=== PATIENT | male | born 1970 | race Caucasian/White ===

== ENCOUNTER 2018-03-26 19:16 | Outpatient (REF) | payer OTHER, SELFPAY ==
[2018-03-26 19:56] LABS: TSH 1.66 uIU/mL (0.358-3.74)
== END 2018-03-26 19:36 ==
LOC: NCHCN 19:16
PROVIDERS: PCP Internal Medicine; Visit Provider Physician Assistant Medical
DX: R20.2 Paresthesia of skin (principal)
CPT/HCPCS: 84443

== ENCOUNTER 2019-02-27 13:36 | Outpatient (CLI) | payer OTHER, SELFPAY ==
--- NOTE | 2019-02-27 13:35 | DI.RAD_ITS ---
SYMPTOMS/DIAGNOSIS: CHRONIC LUMBOSACRAL BACK PAIN, M54.5 SACRUM AND COCCYX: There is no evidence of fracture. No lytic or blastic lesions are identified. There are mild degenerative changes of the SI joints. There are advanced degenerative changes of the L5-S1 disc. IMPRESSION: Unremarkable sacrum and coccyx. LUMBAR SPINE: The vertebral bodies are well maintained in height. Small to moderate endplate osteophytes are seen at all levels. There is mild narrowing of the L4-5 disc space. There is severe narrowing of the L5-S1 disc space with moderate osteophyte formation. There are facet degenerative changes at L4-5 and L5-S1. No spondylolysis, spondylolisthesis or scoliosis is seen. IMPRESSION: Degenerative disc changes and facet degenerative changes, greatest at L5-S1.
== END 2019-02-27 13:56 ==
PROVIDERS: PCP Internal Medicine; Visit Provider Nurse Practitioner Family
DX: M54.5 Low back pain (principal); M53.3 Sacrococcygeal disorders, not elsewhere classified; M51.37 Other intervertebral disc degeneration, lumbosacral region; M47.817 Spondylosis without myelopathy or radiculopathy, lumbosacral region
CPT/HCPCS: 72110; 72220

== ENCOUNTER 2019-03-04 12:16 | Outpatient (CLI) | payer OTHER, SELFPAY ==
--- NOTE | 2019-03-04 10:21 | DI.RAD_ITS ---
SYMPTOM/DIAGNOSIS: ABD DISCOMFORT R10.9 ABDOMEN: 03/04/19 The bowel gas pattern is normal. The abdominal fat planes are well defined and appear intact. There is no evidence of organomegaly or an intra-abdominal mass. No evidence of abnormal intra-abdominal calcification is seen. CONCLUSION: Normal abdomen.
== END 2019-03-04 12:36 ==
PROVIDERS: PCP Internal Medicine; Visit Provider Nurse Practitioner Family
DX: R10.9 Unspecified abdominal pain (principal)
CPT/HCPCS: 74018

== ENCOUNTER 2019-03-26 15:48 | Outpatient (CLI) | payer OTHER, SELFPAY ==
[2019-03-28 09:06] LABS: PSA, Screening 0.5 ng/ml (0-3.5)
== END 2019-03-26 16:08 ==
PROVIDERS: PCP Internal Medicine; Visit Provider Internal Medicine
DX: Z12.5 Encounter for screening for malignant neoplasm of prostate (principal); R10.9 Unspecified abdominal pain
CPT/HCPCS: 36415; 84153

== ENCOUNTER 2019-05-09 00:36 | Outpatient (CLI) | payer OTHER, SELFPAY ==
--- NOTE | 2019-05-09 11:30 | ETT_ITS ---
APPROVED REPORT Exam: Exercise Treadmill Patient Location: Out-Patient Room/Bed: Stress Nurse: Veronica Figueroa RN BMI: 30.71 Baseline Rhythm: NSR Indications: Chest Pain/pressure, Dyspnea, SOB, Dizzy, Diaphoretic Medical History Medical History: GERD, Hyperlipidemia, Anxiety Cardiac Medications: Aspirin, Metoprolol succinate/ Toprol XL Allergies: No known drug allergies Cardiac Risk Factors: Hyperlipidemia, FHX of CAD Pretest Chest Pain Characteristics: Non-exertional Chest pain/pressure Exercise History: Physically active Lung Sounds: Clear to auscultation Heart Sounds: Regular Stress Test Details Test: Exercise stress testing was performed using a Dave protocol. Rest Stress HR Resting HR: 74 bpm Max Heart Rate (APMHR): 169 bpm Resting HR Supine: 74 bpm Target HR (85% APMHR): 143 bpm Resting HR Standin bpm Max HR Achieved: 169 bpm % of APMHR: 100 Recovery HR: 95 bpm HR response to stress: Normal HR response to stress BP Resting BP: 140/90 mmHg Resting BP Supine: 140/90 mmHg Resting BP Standin/88 mmHg Max BP: 198/74 mmHg Recovery BP: 156/72 mmHg BP response to stress: Normal blood pressure response to stress. ECG Resting ECG: Sinus Rhythm Stress ECG: Sinus Tachycardia ST Change: Normal Arrhythmia: None Recovery ECG: Sinus Rhythm Recovery Arrhythmia: None Clinical Time of Stop for Dave: 12:38 Reason for Termination: Target HR Achieved, Fatigue Stress Symptoms: Leg Fatigue Exercise duration: 12 min38 sec Highest Stage Achieved: Stage 4: 4.2 mph at 16% grade. Exercise capacity: 13.92 METs Functional Capacity: Above average capacity Stress ECG Conclusion 1. The patient exercised for 12 minutes and 38 seconds (14 METS) 2. The study was stopped due to leg fatigue 3. There is no EKG abnormality suggestive of inducible ischemia. 4. The Garibay Score (12) estimates an annual cardiovascular mortality of 0% and a five year survival of 96%. Using the Garibay Score there is a low probability of any angiographic coronary disease. Protocol Used: Dave Protocol Stress Test Summary STAGE Time (mins) Speed (mph) Grade (%) HR BP SYMPTOMS METS Supine 74 140/90 Standing 76 140/88 99% 1 3 1.7 10 101 164/90 98% 4.6 2 6 2.5 12 115 166/92 98% 7 3 9 3.4 14 132 170/92 10.2 4 12 4.2 16 156 186/94 98% 12.9 5 15 5.0 18 17.2 1 min recovery 161 198/74 99% 3 min recovery 104 198/74 6 min recovery 95 156/72
== END 2019-05-09 00:56 ==
PROVIDERS: PCP Internal Medicine; Visit Provider Internal Medicine
DX: R07.89 Other chest pain (principal); R06.09 Other forms of dyspnea; R06.02 Shortness of breath; E78.5 Hyperlipidemia, unspecified; Z82.49 Family history of ischemic heart disease and other diseases of the circulatory system
CPT/HCPCS: 93017

== ENCOUNTER 2019-05-16 06:20 | Day surgery (SDC) | payer OTHER, SELFPAY ==
--- NOTE | 2019-05-15 18:38 | W.PM.HP.N ---
Date of service: 05/16/19 Time of Service: 07:30 Assessment and Plan Assessment and plan (1) GERD (gastroesophageal reflux disease): Status: Chronic Assessment and plan: Informed consent is obtained for the procedural (explained in simple layman's terms that the pt and/or family could understand) explaining risks vs benefits and alternatives to the procedure and consequences if we do not do the procedure and need/rational for the procedure. Risks include but are not limited to: bleeding, infection, perforation of esophagus, stomach, colon, small intestines, bronchus or trachea, or PTX. This would necessitate emergency surgery to repair the damage w/ possible ostomy; and other associated complications w/ the required surgery. Also complications of anesthesia including aspiration, MO/CVA/. (2) Rectal pain: Status: Acute History of Present Illness Consults Consult date: 05/16/19 Narrative: From H & P on 03/08 :y/o male with history of GERD presents with complaints of coccyx/rectal pain since December 2018. His discomfort is pressure, numbing in nature and is most prominent with sitting and less so with standing and walking. Previously he also had associated glute pain with sitting in December that was achey in nature. He denies any trauma or injury to the area. He reports his bowel habits have changed in that they are softer than normal. While having BMs it feels like something is impeding my bowel movements. Also of note he describes that intermittently after meals his abdomen becomes uncomfortable with left sided cramping that he believes is related to his digestive track. This is mostly commonly noted after eating sauces, such as tomato or pesto sauce. He denies symptoms of heart burn, bloating or flatus. He denies a family history of colon cancer. Denies bloody or black tarry stools. He denies constitutional symptoms. Denies use of marijuana or any other recreational or illegal drugs. He denies chest pain, palpitations, dyspnea or dyspnea with exertion. He denies prior history or family history of adverse reactions or complications with anesthesia. Rectal exam was unremarkable. No mass, fissure or hemorrhoids was appreciated on exam. Sensation in tact with good sphincter tone. He appeared very uncomfortable during digital rectal exam, however this discomfort was different from what he has been experiencing. Unable to recreate his discomfort with palpation of his glutes, spinous process or coccyx. Discussed the nextbest way to evaluate the area would be to proceed with a Colonoscopy to r/o a large polyp or mass. This will be his first Colonoscopy. No family history of Colon Cancer. Spoke with patient on the phone, he has been having sternal/epigastric discomfort over the past few weeks, which is associated with light headedness. He was seen in the ER in [place] at which time the r/o cardiac cause. Today 05/09/19 he had a cardiac stress test which was unremarkable. He reports having [place] E[place] 8[place]10 [place] of [place] and he does not recall his results. His PCP mentioned concern for Jennings's esophagus and he would like to proceed with an EGD for further evaluation of his symptoms. He denies symptoms of reflux, tasting acid or dry cough. He reports he has been under significant stress in his home and work life and feels this may also be contributing to his symptoms. -Discussed Upper endoscopy procedure and the need to be NPO after midnight the night prior. Discussed possible complications of the procedure to include bleeding, pain, perforation, missed small lesion/polyp/ulcers, sore throat, aspiration and adverse reaction to the medications or sedation. Questions were answered to patients satisfaction. No guarantees were implied or given. Also of note he reports his rectal pain has subsided since being treated with a round of Cipro and Flagly in [place] for a virus. He is due for screening Colonoscopy, so we will proceed with having this done. Stress ECG Conclusion 1. The patient exercised for 12 minutes and 38 seconds (14 METS) 2. The study was stopped due to leg fatigue 3. There is no EKG abnormality suggestive of inducible ischemia. 4. The Garibay Score (12) estimates an annual cardiovascular mortality of 0% and a five year survival of 96%. Using the Garibay Score there is a low probability of any angiographic coronary disease. 05/07 pt seen adn examined. ALl the pain that the pt has been having is gone. pt was recently at a [facility] of [place] [place] scan: diverticular dx and enteritis. now having chest pains/epigastric pain. Started taking otc opemprazole prn . Is now on 40mg daily and is better- but not completely. coffee- none no soda no nsaid's/asa non smoker etoh- weekends no blood in stool or black stools. no vomiting. no pain or diff swallowing. he is eating. + wt loss- but he is trying. [facility] Surgical History History of esophagogastroduodenoscopy (EGD) (Chronic) Family History Mother Polymyalgia rheumatica Heart disease Father Essential hypertension Heart disease Neoplasm Social History Smoking/Tobacco Use Status: Never Alcohol Intake: current Alcohol Intake frequency: a few times a month Alcohol type: beer and wine Substance use type: does not use Do you feel safe at home: Yes Do you feel safe in your relationship?: Yes Meds Home Medications and Allergies Home Medications Medication Instructions Recorded Confirmed Type omeprazole 40 mg PO DAILY tab-cap 12/21/16 05/16/19 History bisacodyl 5 mg tablet,delayed 5 mg PO ONCE #4 tab 03/08/19 05/16/19 Rx release polyethylene glycol 3350 17 238 g PO ONCE #238 gm 03/08/19 05/16/19 Rx gram/dose oral powder Allergies Allergy/AdvReac Type Severity Reaction Status Date / Time No Known Allergies Allergy Unverified 05/16/19 06:43 Exam Const General: cooperative, healthy appearing, comfortable, no acute distress, well developed and well groomed Nutritional Appearance: average body habitus and well nourished Orientation: alert, awake and oriented x3 HENMT Head: normal to inspection, normocephalic and atraumatic Ears: hearing grossly normal bilaterally and external ears normal General nose exam: external nose normal Face and sinus: normal facial exam and sinuses nontender Mouth: oral mucosae normal, lip normal, tongue normal and moist mucous membranes Teeth and gingiva: dentition normal Eyes General: appearance normal, both eyes and all related structures Conjunctivae: conjunctivae normal Sclera: sclerae normal Pupils: PERRL Neck Neck: normal visual inspection and full ROM Chest Chest: normal inspection of the chest Resp Effort & Inspection: normal respiratory effort, able to speak in complete sentences, no cough, no nasal flaring, not tachypneic and no use of accessory muscles Auscultation: clear to auscultation bilaterally, no rales, no rhonchi and no wheezes Cardio Jugular venous pressure: no JVD Rate: regular rate Rhythm: regular rhythm GI Inspection: normal to inspection, no edema and non-distended Palpation: soft, no masses, nontender and No ascites Auscultation: normal bowel sounds Other: chronic achy burning pain in epigastric region the pain that he was having in rectum is resolved at this time. Skin General skin exam: no rashes or lesions noted Trauma: no lacerations or abrasions Neuro General: alert, oriented x3, oriented, gait normal, moves all extremities, no focal motor deficits and CN's II-XI intact bilaterally Cognition: normal cognition Speech: speech normal Gait: normal gait Motor: muscle tone normal throughout Extrem General: normal to inspection, full ROM and no clubbing, cyanosis or edema Psych Appearance: grossly normal and well kempt Mental Status: mental status grossly normal Speech and Movement: speech and movement normal Affect: normal affect
--- NOTE | 2019-05-15 18:59 | W.COLOREPORT ---
Date of service: 05/16/19 Colonoscopy Report Date of procedure: 05/16/19 Pre-op diagnosis general: GERD & rectal pain. Post-op diagnosis procedure note: other (gastritis/diverticular dx ) Procedure: CE w/ bx Surgeon: Reny Fabian Anesthesia proc note operative: GETA Estimated blood loss (mL): 1 Pathology: other Complications: None Disposition: same day Prep: Miralax/Dulcolax Retraction Time: 10 mins Procedure Description: INDICATIONS: The patient is here today at the request of their PCP and is here today for a colonoscopy for rectal pain. Informed consent was obtained, explaining the risks and benefits of the procedure, including but not limited to bleeding, infection, perforation, aspiration, complications from the anesthesia. DESCRIPTION OF PROCEDURE: The patient was brought to the endoscopy suite and placed in left lateral decubitus position. Anesthesia was administered per the Department of Anesthesia, with constant monitoring of all vital signs. Digital rectal exam was performed prior to beginning the procedure and revealed no anal or rectal pathology. There was good sphincter tone. No internal or external hemorrhoids are noted. no fissures or masses. The previously lubricated Olympus was inserted in the rectum and insufflation was begun. The scope was passed up through the recto-sigmoid valves, through the sigmoid and transverse, down the ascending and the cecum was achieved at 90 cm. Good prep was good. The scope was then withdrawn. There were no AVM,s , or polyps noted. He does have many lg mouthed diverticula confined to the sigmoid colon. There is no signs of active bleeding or infection. The mucosa is otherwise pink and healthy. vasculature appears grossly normal. The rectum appears grossly no. Bx is taken of rectum. The patient tolerated the procedure without complicated and transferred to the recovery room in stable condition. Colonoscopy should be repeated in 10 years? time. Reny Fabian, DO
--- NOTE | 2019-05-15 19:00 | W.PM.ENDDOP ---
Date of service: 05/16/19 Time of Service: 09:06 Endoscopy Report DATE OF PROCEDURE: 05/16/19 PRE-OP DIAGNOSIS: GERD/rectal pain POST-OP DIAGNOSIS: same PROCEDURE: egd w/ Bx SURGEON: Reny Murcia ANESTHESIA: GETA ESTIMATED BLOOD LOSS: 1 PATHOLOGY: other DISPOSITION: same day PREP: Miralax/Dulcolax PROCEDURE DESCRIPTION: DESCRIPTION OF PROCEDURE: The patient was brought to the endoscopy suite and placed in left lateral decubitus position. IV and topical anesthesia was administered per the Department of Anesthesia, with constant monitoring of all vital signs. The previously lubricated Olympus scope was inserted into the oropharynx and passed down into the esophagus. There are no esophageal erosions,varix,diverticuli or strictures apparent. The scope is passed into the stomach and through the pylorus- which is freely patent. The Z line is at 38cm and appears nl. No hiatal hernia. The duodenum is normal. The scope is passed into the second portion of the duodenum. Bile is visualized and appears grossly normal. Bx is taken of the duodenal bulb. The stomach is grossly normal no polyps/masses. THere are one or two small polups- from being in on chronic PPI therapy. There is some mild redness in a striped pattern around the antrum. Bx is taken. There is no bile reflux into the stomach. Bx are taken of the, antrum, and greater curvature. Bx are taken of the G-E junction and of the distal esophagus. All the specimens were retrieved, and there was no bleeding noted. The cords appeared normal. The patient tolerated the procedure well and transferred to the recovery room in stable condition. RENY MURCIA D.O.
[2019-05-16 06:30] VITALS: BP 144/95; PULSE 86; RESP 18; TEMP 36.4; O2SAT 99
[2019-05-16] MEDS: Lactated Ringers 1,000 ML 80 ML IV (06:57)
--- NOTE | 2019-05-16 08:19 | STOM_PTH ---
PATIENT: Lawrence Walker LOC: [facility] U#:[id number] AGE/SX: 49/M ROOM: RE05/16/[address]: Reny Fabian : 1970 BED: DIS: 05/16/2019 SPEC #: [id number] RECD: 05/16/19 12:56 STATUS: SANDRA RE #: [id number] JODIE: 05/16/19 08:[address]: Reny Fabian DEPT: Surgical Specimen RECD BY: Hannah Saleem ENTERED: 05/16/19 12:59 SP TYPE: STOMACH OTHR DR: Larry Chino Tissues: 1 - BIOPSY BOWEL 2 - STOMACH BIOPSY 3 - STOMACH BIOPSY 4 - ESOPHAGUS BIOPSY 5 - ESOPHAGUS BIOPSY 6 - BIOPSY BOWEL Procedures: GROSS AND MICRO LEVEL 4 Comments: [id number]
--- NOTE | 2019-05-16 08:55 | W.PM.DSUDISC ---
Discharge Plan Disposition Patient Disposition: HOME Condition: Good Discharge Details Reason For Visit: RECTAL PAIN / GERD Attending Provider: Reny Fabian Primary Care Provider: Larry Chino Home Meds and New Rx's Prescriptions: New pantoprazole 40 mg tablet,delayed release (DR/EC) 40 mg PO DAILY Qty: 30 RF: 12 sucralfate 1 gram tablet 1 gm PO QACHS PRN (Reason: heartburn) Qty: 90 RF: 12 Discontinued polyethylene glycol 3350 17 gram/dose powder 238 g PO ONCE Qty: 238 RF: 0 bisacodyl [Dulcolax (bisacodyl)] 5 mg tablet,delayed release (DR/EC) 5 mg PO ONCE Qty: 4 RF: 0 omeprazole 20 MG capsule,delayed release(DR/EC) 40 mg PO DAILY RF: 0 Discharge Instructions Instructions: Diverticulitis Diet (GEN) Additional Instructions: Findings: mild gastritis. diverticular Dx- no infection Continue with lifestyle modifications: no alcohol, tobacco products, Aspirin or NSAID's (ibuprofen, Motrin, Naprosyn, aleve, etc). try to limit: soda pop/any carbonated beverages, caffeine (including tea & chocolate), and acidic foods, (tomatoes, citrus, onions, peppermints) spicy or fried/fatty foods. Do not lie down for 30 minutes after eating, and do not eat 2 hours prior to bedtime. Avoid wearing tight fitting clothing/ belts no nsaid's x 24 hrs Follow up:repeat colonscopy in ten yrs Please call if you develop: fevers >101.5 Nausea or Vomiting Abdominal pain that is not transient DAY SURGERY UNIT POST COLONOSCOPY INSTRUCTIONS 1. Because there will be medication in your system for the next 24 hours, you may feel a little sleepy. Your coordination will be affected. Therefore: a. Do not drive or operate dangerous equipment for 24 hours. b. Do not drink alcohol beverages for 24 hours (not even beer). c. Plan to go home and rest for the day. 2. Generally there are no restrictions on your activity after a day or so has gone by, but you may feel a bit fatigued for a few days. 3 After you arrive home you may have a light meal and return to a normal diet as you can tolerate it without feeling sick to your stomach. 4. After surgery, you may feel pain or discomfort. This should be only transient, but if it persists please contact your doctor. 5. If there are any questions regarding the findings of your procedure, please feel free to contact your doctor. 6. If you are unable to contact your doctor with a problem, contact the hospital at [phone]. 7. Continue all your regular medications unless directed otherwise. I understand the above instructions and have no questions. Signature of Patient or Responsible Adult Escort Date/Time Name of Responsible Adult Escort Signature of Nurse Date/Time Activity:: no heavy lifting or strenuous activty x 24 hrs Diet:: small light meals today Discharge Orders Discharge Orders: Discharge Order (Routine); Ordered 05/15/19 Ordered By: Reny Fabian DS: Diagnosis Discharge Diagnosis (1) GERD (gastroesophageal reflux disease): Status: Chronic (2) Rectal pain: Status: Acute
[2019-05-16 09:24] VITALS: BP 126/81; PULSE 62; RESP 16; TEMP 36.4; O2SAT 96
== END 2019-05-16 09:58 | disposition home or self-care (01) ==
PROVIDERS: PCP Internal Medicine; Visit Provider Surgery
PROC: (CPT 45380; principal; 2019-05-16 07:30)
DX: K21.0 Gastro-esophageal reflux disease with esophagitis (principal); K62.89 Other specified diseases of anus and rectum; K29.80 Duodenitis without bleeding; K31.89 Other diseases of stomach and duodenum; K57.30 Diverticulosis of large intestine without perforation or abscess without bleeding; D13.1 Benign neoplasm of stomach
CPT/HCPCS: 45380; 43239; 88305; NC

== ENCOUNTER 2019-06-12 12:44 | Outpatient (CLI) | payer OTHER, SELFPAY ==
[2019-06-14 12:01] LABS: IgA 373 mg/dL (85-499)
[2019-06-14 16:44] LABS: Tissue Transglutaminase IgA 1.2 U/mL (<4.0)
== END 2019-06-12 13:04 ==
PROVIDERS: PCP Internal Medicine; Visit Provider Surgery
DX: R10.9 Unspecified abdominal pain (principal); R14.0 Abdominal distension (gaseous); R89.7 Abnormal histological findings in specimens from other organs, systems and tissues
CPT/HCPCS: 82784; 83516; 86141

== ENCOUNTER 2019-08-06 01:03 | Outpatient (CLI) | payer OTHER, SELFPAY ==
--- NOTE | 2019-08-06 08:50 | DI.NM_ITS ---
EXAM: NM HEPATOBILIARY CCK GRP CLINICAL HISTORY: pain and nausea, noncardiac chest pain, R07.89, R11.2. COMPARISON: No exams were available for comparison EXAMINATION: 5.0 millicuries of technetium 99 M mebrofenin were administered IV. 1.5 micrograms of Kinevac was infused over 45 minutes. FINDINGS: There is normal hepatic uptake. Gallbladder and small bowel are promptly visualized. Gallbladder e jection fraction is calculated at 55 percent which is within the normal range. IMPRESSION: Gallbladder ejection fraction of 55 percent, within the normal range.
== END 2019-08-06 01:23 ==
PROVIDERS: PCP Internal Medicine; Visit Provider Surgery
DX: R07.89 Other chest pain (principal); R11.2 Nausea with vomiting, unspecified
CPT/HCPCS: 78227

== ENCOUNTER 2020-04-20 09:13 | Outpatient (CLI) | payer OTHER, SELFPAY ==
[2020-04-23 02:00] LABS: Patient Race White; SARS-CoV-2 RNA Undetected (Undetected); SARS-CoV-2 Specimen Source Nasal
== END 2020-04-20 09:33 ==
LOC: LBO 09:13 → NCHCO 09:16 → LBO 11:51
PROVIDERS: PCP Internal Medicine; Visit Provider Internal Medicine
DX: Z20.828 Contact with and (suspected) exposure to other viral communicable diseases (principal)
CPT/HCPCS: U0003

== ENCOUNTER 2020-08-10 01:47 | Outpatient (CLI) | payer OTHER, SELFPAY ==
[2020-08-10 12:37] LABS: CREATININE 1.1 mg/dL (0.70-1.30); Calculated LDL 120 mg/dL (<100); Cholesterol 200 mg/dL (<200); Glucose 99 mg/dL (74-106); HDL Cholesterol 43 mg/dL (40-60); Triglyceride 187 mg/dL (<150)
[2020-08-10 18:03] LABS: PSA, Screening 0.5 ng/mL (0.0-3.5)
== END 2020-08-10 01:48 | disposition home or self-care (01) ==
PROVIDERS: PCP Family Medicine; Visit Provider Family Medicine
DX: I10 Essential (primary) hypertension (principal); E78.5 Hyperlipidemia, unspecified; R73.9 Hyperglycemia, unspecified; Z12.5 Encounter for screening for malignant neoplasm of prostate
CPT/HCPCS: 36415; 80061; 82947; 84153; 82565

== ENCOUNTER 2020-09-25 12:50 | Outpatient (CLI) | payer OTHER, SELFPAY ==
[2020-09-25 14:23] LABS: Abs Immature Grans 0.01 10^3/uL (0.0-0.06); Absolute Basophil Count 0.04 10^3/uL (0.0-0.2); Absolute Eosinophil Count 0.03 10^3/uL (0.0-0.7); Absolute Lymphocyte Count 1.06 10^3/uL (1.2-3.4); Absolute Monocyte Count 0.64 10^3/uL (0.1-0.8); Absolute Neutrophil Count 1.59 10^3/uL (1.2-6.7); Basophils % 1.2; Eosinophils % 0.9; HCT 43.6 % (40.0-50.0); HGB 14.4 g/dL (13.5-17.5); Immature Grans % 0.3; Lymphocytes % 31.5; MCH 28.4 pg (27.0-33.0); MPV 10.7 fL (8.0-11.0); Neutrophils % 47.1; Nucleated RBC 0 %; Platelet Count 228 10^3/uL (130-400); RBC 5.07 10^6/uL (4.36-5.78); RDW 13.1 % (11.8-14.1); RDW-SD 40.7 fL; WBC 3.37 10^3/uL (4.4-10.8)
[2020-09-25 14:35] LABS: ALT 38 U/L (16-63); AST 15 U/L (15-37); Albumin 3.6 g/dL (3.4-5.0); Alkaline Phosphatase 84 U/L (46-116); Anion Gap 8.2 mmol/L (3-11); BUN 19 mg/dL (7-18); Bilirubin, Total 0.3 mg/dL (0.2-1.0); CO2 28.8 mmol/L (21.0-32.0); CREATININE 1.3 mg/dL (0.70-1.30); Calcium 8.7 mg/dL (8.5-10.1); Chloride 102 mmol/L (98-107); Estimated GFR 57.97 (mL/min/1.73m2); Glucose 101 mg/dL (74-106); Lipase 85 U/L (73-393); Potassium 4.1 mmol/L (3.5-5.1); Sodium 139 mmol/L (136-145); Total Protein 8.2 g/dL (6.4-8.2)
[2020-09-25 14:47] LABS: Bacteria Rare HPF (Negative); C & S Indicated? No; Casts Negative LPF (Negative); Crystals Mod Calcium Oxalate HPF (Negative); Epithelial Cells Negative HPF (Negative); Mucus Moderate (Negative); RBC 0-2 HPF (0-2); WBC 0-2 HPF (0-5)
== END 2020-09-25 12:51 | disposition home or self-care (01) ==
LOC: LBO 12:52
PROVIDERS: PCP Family Medicine; Visit Provider Family Medicine
DX: R10.9 Unspecified abdominal pain (principal); R30.0 Dysuria
CPT/HCPCS: 36415; 80053; 83690; 81015; 85025

== ENCOUNTER 2020-10-05 03:20 | Outpatient (CLI) | payer OTHER, SELFPAY ==
[2020-10-05 22:45] LABS: COVID-19 RT-PCR UVMMC Result Negative (Negative)
== END 2020-10-05 03:21 | disposition home or self-care (01) ==
LOC: LBO 03:20
PROVIDERS: Nurse Practitioner Family; PCP Family Medicine; Visit Provider Family Medicine
DX: Z20.822 Contact with and (suspected) exposure to COVID-19 (principal)
CPT/HCPCS: U0003

== ENCOUNTER 2021-02-18 01:52 | Outpatient (CLI) | payer OTHER, SELFPAY ==
--- NOTE | 2021-02-18 08:45 | DI.MRI_ITS ---
Exam(s) MR PELVIS WO EXAM: MR PELVIS WO CLINICAL HISTORY: ongoing left coccyx pain, M53.3, TECHNIQUE: Multiplanar multisequence MRI of Pelvis was performed COMPARISON: No exams were available for comparison FINDINGS: OSSEOUS: There is no evidence of pelvic nor hip fracture. There is no evidence of sacral or coccyx f racture nor abnormal fluid collection in this region. Sacroiliac joints appear unremarkable. No evidence of sacroiliitis. No ankylosis. L4-5: Annular bulging. Preserved disc height. Mild foraminal stenosis both sides. L5-S1: Chronic-type advanced disc space narrowing. Modic type 2 sub endplate fatty marrow changes. Broad annular bulging. Central-slightly right of center disc protrusion. Central canal dimensions a re lower normal. Annular bulging extends into the exiting neural foramina bilaterally with moderate bilateral foraminal stenosis as the exiting nerve roots are impinged between the overlying L5 pedicle s and subjacent annular bulging. Sacral canal: Distal thecal sac ends at S2-3 level. No evidence of Tarlov intra sacral CIS nor other significant findings within the sacral canal. Hips: No evidence of fracture nor avascular necrosis. Degenerative subarticular cysts noted in the p osterior aspect of the right femoral head IMPRESSION: 1. No evidence of sacral nor coccyx fracture nor abnormal fluid collection in this region. 2. Sacroiliac joints appear unremarkable. 3. Degenerative lumbar spine changes as described above. 4. Degenerative subarticular cysts in the posterior aspect of the right hip femoral head.. This rolanda ures 10 by 8 millimeters. DATA REPOSITORY:
--- NOTE | 2021-02-18 15:41 | DI.VRAD_ITS ---
PROCEDURE INFORMATION: Exam: MR Pelvis Without Contrast, Sacrum Exam date and time: 02/18/2021 3:01 PM Age: 50 years old Clinical indication: Pelvic pain; Additional info: Attention coccyx, pain was slightly left of midline TECHNIQUE: Imaging protocol: Magnetic resonance images of the pelvis without intravenous contrast. Exam focused on the sacrum. COMPARISON: CR XR sacrum coccyx 02/27/2019 1:25 PM FINDINGS: Bones/joints: There is no evidence for fracture of the visualized skeleton. The sacroiliac joints are patent. Mild osteophyte formation is present about them. There is no significant edema or erosion along them. The partially included hip joints are normally aligned and demonstrate mild degenerative changes, including a mild degenerative cyst posteriorly in the right femoral head. Lower lumbar spondylosis is partially visualized. At L4-L5, there is a disc bulge which appears to lead to mild bilateral neural foraminal narrowing. At L5-S1, there is a disc osteophyte complex which appears to lead to moderate to severe bilateral neural foraminal narrowing. Soft tissues: The soft tissues appear unremarkable. IMPRESSION: 1. No evidence for fracture of the sacrum or visualized pelvis. 2. Degenerative changes as described. Dictated and Authenticated by: Sergo Ayala MD. Ordering:DORINDA Najera MD
== END 2021-02-18 02:12 ==
PROVIDERS: PCP Family Medicine; Visit Provider Family Medicine
DX: M53.3 Sacrococcygeal disorders, not elsewhere classified (principal); M25.78 Osteophyte, vertebrae; M47.816 Spondylosis without myelopathy or radiculopathy, lumbar region; M16.0 Bilateral primary osteoarthritis of hip; M51.26 Other intervertebral disc displacement, lumbar region; M99.73 Connective tissue and disc stenosis of intervertebral foramina of lumbar region
CPT/HCPCS: 72195

== ENCOUNTER 2021-05-24 03:12 | Outpatient (CLI) | payer OTHER, SELFPAY ==
[2021-05-25 16:33] LABS: COVID-19 RT-PCR UVMMC Result Negative (Negative)
== END 2021-05-24 03:13 | disposition home or self-care (01) ==
LOC: LBO 03:13
PROVIDERS: PCP Family Medicine; Visit Provider Family Medicine
DX: Z20.822 Contact with and (suspected) exposure to COVID-19 (principal)
CPT/HCPCS: U0003

== ENCOUNTER 2022-06-24 03:12 | Outpatient (CLI) | payer OTHER, SELFPAY ==
[2022-06-24 13:33] LABS: Calculated LDL 155 mg/dL (<100); Cholesterol 241 mg/dL (<200); Glucose 101 mg/dL (74-106); HDL Cholesterol 53 mg/dL (40-60); Triglyceride 169 mg/dL (<150)
[2022-06-24 23:11] LABS: PSA, Screening 0.5 ng/mL (<=3.5)
== END 2022-06-24 03:13 | disposition home or self-care (01) ==
LOC: LOS 03:12
PROVIDERS: PCP Family Medicine; Visit Provider Family Medicine
DX: E78.5 Hyperlipidemia, unspecified (principal); R73.9 Hyperglycemia, unspecified; Z12.5 Encounter for screening for malignant neoplasm of prostate
CPT/HCPCS: 36415; 80061; 82947; 84153

== ENCOUNTER 2023-08-23 08:50 | Outpatient (CLI) | payer OTHER, SELFPAY ==
[2023-08-23 13:12] LABS: Calculated LDL 141 mg/dL (<100); Cholesterol 235 mg/dL (<200); Glucose 106 mg/dL (74-106); HDL Cholesterol 53 mg/dL (40-60); Triglyceride 205 mg/dL (<150)
== END 2023-08-23 08:51 | disposition home or self-care (01) ==
LOC: LOS 08:51
PROVIDERS: PCP Family Medicine; Referring Provider Family Medicine; Visit Provider Family Medicine
DX: E78.5 Hyperlipidemia, unspecified (principal); R73.9 Hyperglycemia, unspecified
CPT/HCPCS: 36415; 80061; 82947

== ENCOUNTER 2025-01-16 02:44 | Outpatient (CLI) | payer OTHER, SELFPAY ==
[2025-01-16 12:49] LABS: Calculated LDL 146 mg/dL (<100); Cholesterol 222 mg/dL (<200); HDL Cholesterol 52 mg/dL (>or=40); Hemoglobin A1C 5.5 % (<5.7); Triglyceride 122 mg/dL (<150)
[2025-01-16 19:26] LABS: PSA, Screening 0.7 ng/mL (<=3.5)
== END 2025-01-16 02:45 | disposition home or self-care (01) ==
LOC: LOS 02:45
PROVIDERS: PCP Family Medicine; Visit Provider Family Medicine
DX: E78.5 Hyperlipidemia, unspecified (principal); Z12.5 Encounter for screening for malignant neoplasm of prostate; R73.9 Hyperglycemia, unspecified
CPT/HCPCS: 36415; 80061; 84153; 83036